=== PATIENT | female | born 2000 | race African-American/Black ===

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

== ENCOUNTER 2019-02-28 22:26 | Outpatient (CLI) | payer MEDICAID ==
[2019-02-28 23:03] LABS: APPEARANCE,URINE SLIGHTLY-CLOUDY; BILIRUBIN,URINE NEGATIVE (NEGATIVE); COLOR,URINE YELLOW; GLUCOSE, URINE 50 mg/dL (NEGATIVE); KETONES,URINE NEGATIVE (NEGATIVE); LEUKOCYTE ESTERASE,URINE MODERATE (NEGATIVE); NITRITE,URINE NEGATIVE (NEGATIVE); PROTEIN,URINE 30 mg/dL (NEGATIVE); URINE SPECIFIC GRAVITY 1.006; UROBILINOGEN,URINE NEGATIVE mg/dL (<2.0)
[2019-02-28 23:15] LABS: URINE AMPHETAMINES SCREEN NEGATIVE; URINE BARBITURATES SCREEN NEGATIVE; URINE BENZODIAZEPINES SCREEN NEGATIVE; URINE COCAINE SCREEN NEGATIVE; URINE MARIJUANA (THC) SCREEN NEGATIVE; URINE METHADONE SCREEN NEGATIVE; URINE PHENCYCLIDINE SCREEN NEGATIVE
== END 2019-02-28 23:59 | disposition home or self-care (01) ==
LOC: LC 22:26
PROVIDERS: ATTEND Obstetrics & Gynecology Gynecology
DX: Z34.02 Encounter for supervision of normal first pregnancy, second trimester (principal)
CPT/HCPCS: 80307; 81001; 87086

== ENCOUNTER 2019-03-05 05:31 | Observation (INO) | payer MEDICAID ==
[2019-03-05 06:06] LABS: APPEARANCE,URINE CLOUDY; BILIRUBIN,URINE NEGATIVE (NEGATIVE); COLOR,URINE YELLOW; GLUCOSE, URINE NEGATIVE (NEGATIVE); KETONES,URINE TRACE mg/dL (NEGATIVE); LEUKOCYTE ESTERASE,URINE LARGE (NEGATIVE); NITRITE,URINE NEGATIVE (NEGATIVE); PROTEIN,URINE 100 mg/dL (NEGATIVE); URINE SPECIFIC GRAVITY 1.005; UROBILINOGEN,URINE NEGATIVE mg/dL (<2.0)
[2019-03-05] MEDS ORDERED: NALBUPHINE HCL INJ 10 MG/1 ML AMPULE ONE (06:22)
[2019-03-05] MEDS ORDERED: RINGERS SOLUTION,LACTATED 1,000 ML IV ONE (06:22)
[2019-03-05] MEDS ORDERED: CEFTRIAXONE INJ 1000 MG VIAL ONE (06:22)
[2019-03-05 06:24] LABS: URINE AMPHETAMINES SCREEN NEGATIVE; URINE BARBITURATES SCREEN NEGATIVE; URINE BENZODIAZEPINES SCREEN NEGATIVE; URINE COCAINE SCREEN NEGATIVE; URINE MARIJUANA (THC) SCREEN NEGATIVE; URINE METHADONE SCREEN NEGATIVE; URINE PHENCYCLIDINE SCREEN NEGATIVE
[2019-03-05] MEDS ORDERED: NALBUPHINE HCL INJ 10 MG/1 ML AMPULE INJ ONE (06:26)
[2019-03-05] MEDS ORDERED: CEFTRIAXONE 1 GM/D5W RTU 1 GM/50 ML RTUPB IV SCH (07:00)
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
[2019-03-05 07:16] LABS: ABSOLUTE LYMPHOCYTES (AUTO) 1.2 10^3/uL (0.5-4.7); ABSOLUTE MONOCYTES (AUTO) 1.5 10^3/uL (0.1-1.4); ABSOLUTE NEUT (AUTO) 12.2 10^3/uL (1.7-8.2); BASOPHILS % (AUTO) 0.2 % (0-2); EOSINOPHILS % (AUTO) 0.2 % (0-6); HEMATOCRIT 34.7 % (36.0-47.0); HEMOGLOBIN 11.6 g/dL (12.0-15.5); LYMPHOCYTES % (AUTO) 7.7 % (13-45); MEAN CORPUSCULAR HGB CONC 33.5 g/dL (32.0-36.0); MEAN CORPUSCULAR VOLUME 81 fl (80-97); MONOCYTES % (AUTO) 10.1 % (3-13); PLATELET COUNT 311 10^3/uL (150-450); RED BLOOD COUNT 4.31 10^6/uL (3.72-5.28); RED CELL DISTRIBUTION WIDTH 13.3 % (11.5-14.0); SEGMENTED NEUTROPHILS % (AUTO) 81.8 % (42-78); TOTAL CELLS COUNTED % (AUTO) 100 %; WHITE BLOOD COUNT 14.9 10^3/uL (4.0-10.5)
[2019-03-05 07:27] LABS: ALANINE AMINOTRANSFERASE 30 U/L (5-35); ALBUMIN 3.8 g/dL (3.7-5.6); ALKALINE PHOSPHATASE 89 U/L (50-135); ANION GAP 11 (5-19); ASPARTATE AMINO TRANSFERASE 23 U/L (5-30); BILIRUBIN,DIRECT 0.2 mg/dL (0.0-0.4); BILIRUBIN,TOTAL 0.8 mg/dL (0.2-1.3); BLOOD UREA NITROGEN 5 mg/dL (7-20); CALCIUM 9.6 mg/dL (8.4-10.2); CARBON DIOXIDE 27 mmol/L (22-30); CHLORIDE 100 mmol/L (98-107); GLUCOSE 80 mg/dL (75-110); POTASSIUM 3.3 mmol/L (3.6-5.0); SODIUM 137.9 mmol/L (137-145); TOTAL PROTEIN 7.1 g/dL (6.3-8.2)
[2019-03-05 09:29] LABS: CHLAM PCR NOT DETECTED (NOT DETECT); GON PCR NOT DETECTED (NOT DETECT)
[2019-03-05] MEDS: CEFTRIAXONE SODIUM 1,000 MG in DEXTROSE 5%-WATER 50 ML IV SCH ×2 (10:26→22:21)
[2019-03-05] MEDS: RINGERS SOLUTION,LACTATED 1,000 ML IV PRN ×2 (12:41→20:58)
[2019-03-06] MEDS: RINGERS SOLUTION,LACTATED 1,000 ML IV PRN (05:08)
[2019-03-06 09:27] VITALS: BP 122/74
--- NOTE | 2019-03-06 10:26 | PDOC DISCHARGE SUMMARY ---
Addendum entered and electronically signed by KEYSHAWN CROW CNM 03/06/19 10:48: Plan Discharge Plan: written rx for macrobid 100mg bid po given Time Spent: Less than 30 Minutes Original Note: General - Admit/Disc Date/PCP Admission Date/Primary Care Provider: 03/05/19 06:25 SONIA BUSBY MD Discharge Date: 03/06/19 - Discharge Diagnosis (1) Nephrolithiasis Is this a current diagnosis for this admission?: Yes - Additional Information Home Medications: Vit,Calc76/Iron/Folic [Pnv 29-1 Tablet] 1 tab PO DAILY 03/05/19 History of Present Illness History of Present Illness: FRANSISCO BOWMAN is a 18 year old female in for observation for kidney stones Hospital Course Hospital Course: has not required any pain medication since observation started Physical Exam - Physical Exam Vital Signs: Temp Pulse Resp BP Pulse Ox 97.9 F 93 H 16 122/74 99 03/06/19 08:00 03/06/19 08:00 03/06/19 03:56 03/06/19 08:00 03/06/19 08:00 Intake & Output 03/05/19 03/06/19 03/07/19 06:59 06:59 06:59 Intake Total 3460 Output Total 2800 Balance 660 Weight 82.5 kg General appearance: PRESENT: no acute distress, cooperative Additional comments: no CVAT bilaterally Result Laboratory Results: 03/05/19 06:49 03/05/19 06:49 Plan Discharge Plan: discharge to home, follow up in 3-4 days Time Spent: Less than 30 Minutes Acute Heart Failure - Is this a Heart Failure Patient?: No
== END 2019-03-06 11:05 | disposition home or self-care (01) ==
LOC: LC 05:31 → LR 06:25 → 2S 08:47
PROVIDERS: ADMIT Student in an Organized Health Care Education/Training Program; ATTEND Student in an Organized Health Care Education/Training Program
PROC: 4A1HXCZ Monitoring of Products of Conception, Cardiac Rate, External Approach (ICD-10-PCS; principal; 2019-03-05)
DX: O26.892 Other specified pregnancy related conditions, second trimester (principal); N20.0 Calculus of kidney; O99.012 Anemia complicating pregnancy, second trimester; D57.3 Sickle-cell trait; Z3A.25 25 weeks gestation of pregnancy; Z89.202 Acquired absence of left upper limb, unspecified level
CPT/HCPCS: 86900; 86901; 36415; 87086; 86850; 85025; 86592; 80053; 81001; 80307; 87491; 87591; 59899; J2300; J0696 ×2; J7060; J7120 ×2; G0378; G0379

== ENCOUNTER 2019-05-13 15:42 | Outpatient (CLI) | payer MEDICAID ==
[2019-05-13 17:08] LABS: ABSOLUTE EOSINOPHILS # (AUTO) 0.1 10^3/uL (0.0-0.6); ABSOLUTE LYMPHOCYTES (AUTO) 1.5 10^3/uL (0.5-4.7); ABSOLUTE MONOCYTES (AUTO) 0.9 10^3/uL (0.1-1.4); ABSOLUTE NEUT (AUTO) 9.6 10^3/uL (1.7-8.2); BASOPHILS % (AUTO) 0.4 % (0-2); EOSINOPHILS % (AUTO) 1.1 % (0-6); HEMATOCRIT 30.4 % (36.0-47.0); LYMPHOCYTES % (AUTO) 12.3 % (13-45); MEAN CORPUSCULAR HGB CONC 32.9 g/dL (32.0-36.0); MEAN CORPUSCULAR VOLUME 76 fl (80-97); MONOCYTES % (AUTO) 7.6 % (3-13); PLATELET COUNT 329 10^3/uL (150-450); RED BLOOD COUNT 3.99 10^6/uL (3.72-5.28); RED CELL DISTRIBUTION WIDTH 13.6 % (11.5-14.0); SEGMENTED NEUTROPHILS % (AUTO) 78.6 % (42-78); TOTAL CELLS COUNTED % (AUTO) 100 %; WHITE BLOOD COUNT 12.3 10^3/uL (4.0-10.5)
[2019-05-13 17:29] LABS: ALBUMIN 3.2 g/dL (3.7-5.6); ALKALINE PHOSPHATASE 139 U/L (50-135); ANION GAP 10 (5-19); ASPARTATE AMINO TRANSFERASE 27 U/L (5-30); BILIRUBIN,DIRECT 0.1 mg/dL (0.0-0.4); BILIRUBIN,TOTAL 0.5 mg/dL (0.2-1.3); BLOOD UREA NITROGEN 4 mg/dL (7-20); CALCIUM 8.8 mg/dL (8.4-10.2); CARBON DIOXIDE 25 mmol/L (22-30); CHLORIDE 103 mmol/L (98-107); GLUCOSE 84 mg/dL (75-110); URIC ACID 5.4 mg/dL (2.5-6.2)
[2019-05-13 17:31] LABS: POTASSIUM 2.9 mmol/L (3.6-5.0)
[2019-05-13] MEDS ORDERED: POTASSIUM CHLORIDE 10 MEQ CAPSULE.ER PO ONE ×2 (17:59→18:06)
[2019-05-13 18:36] LABS: APPEARANCE,URINE CLEAR; BILIRUBIN,URINE NEGATIVE (NEGATIVE); COLOR,URINE STRAW; GLUCOSE, URINE NEGATIVE (NEGATIVE); KETONES,URINE 20 mg/dL (NEGATIVE); LEUKOCYTE ESTERASE,URINE MODERATE (NEGATIVE); NITRITE,URINE NEGATIVE (NEGATIVE); PROTEIN,URINE NEGATIVE (NEGATIVE); URINE SPECIFIC GRAVITY 1.003; UROBILINOGEN,URINE NEGATIVE mg/dL (<2.0)
[2019-05-13 18:51] LABS: URINE AMPHETAMINES SCREEN NEGATIVE; URINE BARBITURATES SCREEN NEGATIVE; URINE BENZODIAZEPINES SCREEN NEGATIVE; URINE COCAINE SCREEN NEGATIVE; URINE MARIJUANA (THC) SCREEN NEGATIVE; URINE METHADONE SCREEN NEGATIVE; URINE PHENCYCLIDINE SCREEN NEGATIVE
[2019-05-13 18:55] LABS: UR PRO/CREAT RATIO RESULT 0.6 mg/mg (0.0-0.2); URINE CREATININE 31.5 mg/dL (16-327); URINE PROTEIN 20.3 mg/dL (<12)
[2019-05-13] MEDS ORDERED: NIFEDIPINE 30 MG TAB.ER.24 PO ONE ×2 (19:00→19:02)
--- NOTE | 2019-05-13 19:17 | Non Stress Test Report ---
Non Stress Test Datetime Report Generated by CPN: 05/13/2019 19:17 DEMOGRAPHIC EGA NST: 35.2 INDICATION Indication for Study: Ordered by Provider MONITORING Monitor Explained: Monitor Explained; Test Explained; Patient Verbalized Understanding Time on Monitor: 05/13/2019 15:51 Time off Monitor: 05/13/2019 19:05 NST Duration: 194 NST INTERVENTIONS NST Interventions: PO Hydration Physician Notified NST: Dr. Younger BABY A: [id number] BABY A Movement : Present Contraction Frequency : Irritability FHR Baseline : 130 Accelerations : 15X15 Decelerations : None Variability : Moderate 6-25bpm NST Review: Meets Criteria for Reactive NST NST Results: Reactive NST REPORT Report Trigger: Send Report
== END 2019-05-13 19:37 | disposition home or self-care (01) ==
LOC: LC 15:42
PROVIDERS: ATTEND Obstetrics & Gynecology
PROC: 4A1HXCZ Monitoring of Products of Conception, Cardiac Rate, External Approach (ICD-10-PCS; principal; 2019-05-13)
DX: O47.03 False labor before 37 completed weeks of gestation, third trimester (principal); Z3A.35 35 weeks gestation of pregnancy
CPT/HCPCS: 59025; 36415; 83615; 84156; 84550; 82570; 85025; 80053; 81001; 80307; J3490

== ENCOUNTER 2019-05-24 17:58 | Inpatient (IN) | payer MEDICAID ==
[2019-05-24 17:32] LABS: APPEARANCE,URINE SLIGHTLY-CLOUDY; BILIRUBIN,URINE NEGATIVE (NEGATIVE); COLOR,URINE STRAW; GLUCOSE, URINE NEGATIVE (NEGATIVE); KETONES,URINE NEGATIVE (NEGATIVE); LEUKOCYTE ESTERASE,URINE LARGE (NEGATIVE); NITRITE,URINE NEGATIVE (NEGATIVE); PROTEIN,URINE NEGATIVE (NEGATIVE); URINE SPECIFIC GRAVITY 1.001; UROBILINOGEN,URINE NEGATIVE mg/dL (<2.0)
[2019-05-24 17:44] LABS: HEMATOCRIT 31.4 % (36.0-47.0); HEMOGLOBIN 10.3 g/dL (12.0-15.5); MEAN CORPUSCULAR HEMOGLOBIN 24.5 pg (27.0-33.4); MEAN CORPUSCULAR HGB CONC 32.8 g/dL (32.0-36.0); MEAN CORPUSCULAR VOLUME 75 fl (80-97); PLATELET COUNT 315 10^3/uL (150-450); RED BLOOD COUNT 4.21 10^6/uL (3.72-5.28); RED CELL DISTRIBUTION WIDTH 14.1 % (11.5-14.0); WHITE BLOOD COUNT 12.5 10^3/uL (4.0-10.5)
[2019-05-24 17:51] LABS: UR PRO/CREAT RATIO RESULT 0.9 mg/mg (0.0-0.2); URINE PROTEIN 20.5 mg/dL (<12)
[2019-05-24 17:57] LABS: URINE AMPHETAMINES SCREEN NEGATIVE; URINE BARBITURATES SCREEN NEGATIVE; URINE BENZODIAZEPINES SCREEN NEGATIVE; URINE COCAINE SCREEN NEGATIVE; URINE MARIJUANA (THC) SCREEN NEGATIVE; URINE METHADONE SCREEN NEGATIVE; URINE PHENCYCLIDINE SCREEN NEGATIVE
[2019-05-24 18:04] LABS: ALBUMIN 3.3 g/dL (3.7-5.6); ALKALINE PHOSPHATASE 168 U/L (50-135); ANION GAP 8 (5-19); ASPARTATE AMINO TRANSFERASE 25 U/L (5-30); BILIRUBIN,DIRECT 0.2 mg/dL (0.0-0.4); BILIRUBIN,TOTAL 0.7 mg/dL (0.2-1.3); BLOOD UREA NITROGEN 2 mg/dL (7-20); CALCIUM 9.2 mg/dL (8.4-10.2); CARBON DIOXIDE 28 mmol/L (22-30); CHLORIDE 100 mmol/L (98-107); GLUCOSE 72 mg/dL (75-110); POTASSIUM 3.1 mmol/L (3.6-5.0); TOTAL PROTEIN 6.2 g/dL (6.3-8.2); URIC ACID 5.4 mg/dL (2.5-6.2)
[2019-05-24] MEDS ORDERED: DINOPROSTONE 10 MG VAGINAL INSERT.SR ONE (19:51)
[2019-05-24] MEDS ORDERED: HYDRALAZINE HCL INJ/PF 20 MG/1 ML SDV ONE (20:02)
[2019-05-24] MEDS ORDERED: HYDRALAZINE HCL INJ/PF 20 MG/1 ML SDV IV ONE ×2 (20:04)
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
[2019-05-24] MEDS: HYDRALAZINE HCL INJ/PF 20 MG/1 ML SDV IV PRN (21:12)
[2019-05-24] MEDS ORDERED: MAG HYDROX/AL HYDROX/SIMETH SUSP 30 ML UDCUP PO ONE (21:16)
[2019-05-24] MEDS ORDERED: MAG HYDROX/AL HYDROX/SIMETH SUSP 30 ML UDCUP ONE (21:17)
[2019-05-24] MEDS ORDERED: NIFEDIPINE 10 MG CAPSULE PO ONE (21:47)
[2019-05-24] MEDS ORDERED: NIFEDIPINE 10 MG CAPSULE ONE (21:50)
[2019-05-24] MEDS ORDERED: ONDANSETRON HCL INJ/PF 4 MG/2 ML SDV IV ONE (23:34)
[2019-05-24] MEDS ORDERED: ACETAMINOPHEN 325 MG TABLET ONE (23:34)
[2019-05-24] MEDS ORDERED: ONDANSETRON HCL INJ/PF 4 MG/2 ML SDV ONE (23:34)
[2019-05-24] MEDS ORDERED: ACETAMINOPHEN 325 MG TABLET PO ONE (23:35)
[2019-05-25] MEDS ORDERED: MISOPROSTOL 0.2 MG TABLET ONE (06:00)
[2019-05-25] MEDS ORDERED: OXYTOCIN 10 UNIT/ML VIAL ONE (06:00)
[2019-05-25] MEDS ORDERED: LIDOCAINE 1% INJ-PF (10 MG/ML) 30 ML SDV ONE (06:00)
[2019-05-25] MEDS ORDERED: OXYTOCIN/NORMAL SALINE 20 UNIT/1,000 ML RTUINJ ONE (06:01)
[2019-05-25] MEDS ORDERED: RINGERS SOLUTION,LACTATED 1,000 ML IV PRN (06:55)
[2019-05-25] MEDS ORDERED: NIFEDIPINE 30 MG TAB.ER.24 PO ONE (07:44)
[2019-05-25] MEDS: NIFEDIPINE 30 MG TAB.ER.24 PO SCH (07:46)
[2019-05-25] MEDS ORDERED: DINOPROSTONE 10 MG VAGINAL INSERT.SR ONE (18:47)
[2019-05-25] MEDS ORDERED: ACETAMINOPHEN 325 MG TABLET PO ONE (19:40)
[2019-05-25] MEDS ORDERED: ACETAMINOPHEN 325 MG TABLET ONE (19:44)
[2019-05-25] MEDS ORDERED: ZOLPIDEM TARTRATE 5 MG TABLET PO ONE (23:54)
[2019-05-25] MEDS ORDERED: ZOLPIDEM TARTRATE 5 MG TABLET ONE (23:56)
[2019-05-26] MEDS ORDERED: LIDOCAINE 2% JELLY 5 ML TUBE ONE (08:52)
[2019-05-26 09:12] LABS: HEMATOCRIT 33.3 % (36.0-47.0); MEAN CORPUSCULAR HEMOGLOBIN 24.6 pg (27.0-33.4); MEAN CORPUSCULAR VOLUME 75 fl (80-97); PLATELET COUNT 333 10^3/uL (150-450); RED BLOOD COUNT 4.46 10^6/uL (3.72-5.28); RED CELL DISTRIBUTION WIDTH 14.1 % (11.5-14.0); WHITE BLOOD COUNT 14.4 10^3/uL (4.0-10.5)
[2019-05-26 09:32] LABS: ALBUMIN 3.4 g/dL (3.7-5.6); ALKALINE PHOSPHATASE 179 U/L (50-135); ANION GAP 11 (5-19); ASPARTATE AMINO TRANSFERASE 23 U/L (5-30); BILIRUBIN,DIRECT 0.3 mg/dL (0.0-0.4); BLOOD UREA NITROGEN 3 mg/dL (7-20); CALCIUM 9.1 mg/dL (8.4-10.2); CARBON DIOXIDE 25 mmol/L (22-30); CHLORIDE 100 mmol/L (98-107); GLUCOSE 76 mg/dL (75-110); TOTAL PROTEIN 6.6 g/dL (6.3-8.2); URIC ACID 5.8 mg/dL (2.5-6.2)
[2019-05-26 09:41] LABS: POTASSIUM 2.8 mmol/L (3.6-5.0)
[2019-05-26] MEDS ORDERED: OXYTOCIN/NORMAL SALINE 20 UNIT/1,000 ML RTUINJ ONE (10:43)
[2019-05-26] MEDS ORDERED: OXYTOCIN/NORMAL SALINE 20 UNIT/1,000 ML RTUINJ IV PRN (10:47)
[2019-05-26] MEDS ORDERED: NIFEDIPINE 30 MG TAB.ER.24 PO ONE (12:20)
[2019-05-26] MEDS ORDERED: POTASSIUM CHLORIDE 10 MEQ CAPSULE.ER PO ONE (16:27)
[2019-05-26] MEDS ORDERED: POTASSIUM CHLORIDE 20 MEQ PACKET PO ONE (16:30)
[2019-05-26] MEDS ORDERED: POTASSIUM CHLORIDE 20 MEQ PACKET PO SCH ×2 (16:30→20:00)
[2019-05-26] MEDS ORDERED: EPHEDRINE SULFATE INJ 50 MG/1 ML AMPULE ONE (18:24)
[2019-05-26] MEDS ORDERED: FENTANYL CITRATE INJ/PF 100 MCG/2 ML AMPUL ONE (18:24)
[2019-05-26] MEDS ORDERED: PHENYLEPHRINE HCL INJ/PF 10 MG/1 ML SDV ONE (18:24)
[2019-05-26] MEDS ORDERED: FENTANYL/BUPIVACAINE/NS/PF 300 MCG/150 ML RTUINJ EPI ONE (18:25)
[2019-05-26] MEDS ORDERED: BUPIVACAINE HCL 0.25 % INJ/PF (2.5 MG/1 ML) 30 ML VIAL ONE (18:25)
[2019-05-26] MEDS ORDERED: AMPICILLIN SOD INJ 2 GM VIAL ONE (23:30)
[2019-05-26] MEDS ORDERED: NALBUPHINE HCL INJ 10 MG/1 ML AMPULE ONE (23:39)
[2019-05-27] MEDS ORDERED: AMPICILLIN SOD INJ 2 GM VIAL IV ONE (00:30)
[2019-05-27] MEDS ORDERED: NALBUPHINE HCL INJ 10 MG/1 ML AMPULE IV ONE (00:30)
[2019-05-27] MEDS ORDERED: POTASSIUM CHLORIDE 20 MEQ PACKET PO ONE (02:00)
[2019-05-27] MEDS ORDERED: HYDRALAZINE HCL INJ/PF 20 MG/1 ML SDV ONE (02:53)
[2019-05-27] MEDS: HYDRALAZINE HCL INJ/PF 20 MG/1 ML SDV IV PRN ×2 (02:58→03:09)
[2019-05-27] MEDS ORDERED: MISOPROSTOL 0.2 MG TABLET PR ONE (04:11)
[2019-05-27] MEDS ORDERED: BENZOCAINE/MENTHOL AEROSOL SPRAY 56 ML TOP PRN (04:15)
[2019-05-27] MEDS ORDERED: ACETAMINOPHEN WITH CODEINE #3 TABLET PO PRN ×2 (04:15)
[2019-05-27] MEDS ORDERED: OXYTOCIN/NORMAL SALINE 20 UNIT/1,000 ML RTUINJ IV PRN (04:15)
[2019-05-27] MEDS ORDERED: DIPH/PERTUSS(ACELL)/TETANUS VAC/PF 0.5 ML SYR (>=10YO) IM PRN ×2 (04:15→13:00)
[2019-05-27] MEDS ORDERED: ZOLPIDEM TARTRATE 5 MG TABLET PO PRN (04:15)
[2019-05-27] MEDS ORDERED: DIBUCAINE 1% OINTMENT 56 GM TP PRN (04:15)
[2019-05-27] MEDS ORDERED: PENICILLIN G-K 5 MILLION UNIT VIAL IV ONE ×2 (04:30→08:30)
--- NOTE | 2019-05-27 05:52 | Delivery Summary ---
Del Sum A-C Datetime Report Generated by CPN: 05/27/2019 05:52 DELIVERY PERSONNEL DELIVERY PERSONNEL: [id number] Delivery Doctor:: Janice Alcantara MD Labor and Delivery Nurse:: Giovanna Ugalde RNmusic video director Nurse:: Mona Beckman RN Nursery Nurse:: Katia Perkins RN Nursery Nurse:: Adrienne Hickman RN MATERNAL INFORMATION Delivery Anesthesia: Local; Epidural Medications After Delivery: Pitocin Drip 20 Units/1000ml NSS Estimated Blood Loss (ml): 100 Maternal Complications: Maternal Fever Provider Comments: of a viable female w/an OA w/nuchal cord x 1 presentation; APGARS pending; 1st deg left vag and 1st deg right periyrethral lacs LABOR SUMMARY EDC: 06/15/2019 00:00 No. Babies in Womb: 1 Attempted: No Labor Anesthesia: Epidural LABOR INFORMATION Reason for Induction: Pre-Eclampsia Onset of Labor: 05/26/2019 16:15 Complete Dilatation: 05/27/2019 03:24 Cervical Ripening Agents: Cervidil Oxytocin: Augmentation Group B Beta Strep: negative Antibiotics # of Doses: 0 Antibiotics Time of Last Dose: N/A Name of Antibiotic Given: N/A MEMBRANES Membranes Rupture Method: Artificial Rupture of Membranes: 05/26/2019 16:15 Length of Rupture (hr): 11.52 Amniotic Fluid Color: Clear Amniotic Fluid Amount: Moderate Amniotic Fluid Odor: Normal STAGES OF LABOR Stage 1 hr: 11 Stage 1 min: 9 Stage 2 hr: 0 Stage 2 min: 22 Stage 3 hr: 0 Stage 3 min: 5 Total Time in Labor hr: 11 Total Time in Labor min: 36 VAGINAL DELIVERY Episiotomy: None Laceration #1: Vaginal Laceration Extension #1: First Degree Laceration #2: Periurethral Laceration Extension #2: First Degree Laceration Repair: Yes Laceration Repair Note: 1st deg right periurethral and 1st deg left vag lac repaired w/3-0 chromic Sponge Count Correct: Yes Sharps Count Correct: Yes CSECTION DELIVERY Primary Indication: N/A CSection Incidence: N/A Labor: N/A Elective: N/A Uterine Closure: Double-layer closure BABY A INFORMATION Delivery Date/Time: 05/27/2019 03:46 Method of Delivery: Vaginal Born in Route : No : N/A Forceps: N/A Vacuum Extraction: N/A Shoulder Dystocia : No PRESENTATION/POSITION BABY A Presentation: Cephalic Cephalic Presentation: Vertex Vertex Position: OA Breech Presentation: N/A PLACENTA INFORMATION BABY A Placenta Delivery Time : 05/27/2019 03:51 Placenta Method of Delivery: Spontaneous Placenta Status: Delivered SCORES BABY A Heart Rate 1 min: >100 bpm Resp Effort 1 min: [place] Reflex Irritability 1 min: No Response Muscle Tone 1 min: Flaccid Color 1 min: Blue/Pale Resuscitation Effort 1 min: Tactile Stimulation SCORE 1 MIN: 4 Heart Rate 5 min: >100 bpm Resp Effort 5 min: [place] Reflex Irritability 5 min: [place] Muscle Tone 5 min: Some Flexion of Extremities Color 5 min: Body [place], Extremities Blue Resuscitation Effort 5 min: Tactile Stimulation SCORE 5 MIN: 7 INFORMATION BABY A Gestational Age at Delivery: 37.2 Gestational Status: Early Term- 37- 38.6 Weeks Outcome : Liveborn Condition : Stable Sex: Female IDENTIFICATION BABY A Infant Verification Date/Time: 05/27/2019 04:29 ID Band Number: [id number] Mother's Name Verified: Yes Infant RN Verifying Infant: Lydia Beckman RN Additional Verifying Personnel: S Aftab RN WEIGHT/LENGTH BABY A Infant Birthweight (gm): 2875 Infant Weight (lb): 6 Infant Weight (oz): 5 Length (in): 19.50 Length (cm): 49.53 CORD INFORMATION BABY A No. Cord Vessels: 3 Nuchal Cord : Around Neck x1, Loose Cord Blood Taken: Yes-For Storage (Mom's Blood type +) Suction: Mouth ASSESSMENT BABY A Skin to Skin: No BABY B INFORMATION : N/A SIGNATURES Signature: with User ID: [email or web address]
[2019-05-27] MEDS: IBUPROFEN 800 MG TABLET PO SCH ×3 (07:31→21:07)
[2019-05-27] MEDS: NIFEDIPINE 30 MG TAB.ER.24 PO SCH ×3 (09:19→12:22)
[2019-05-27] MEDS: AMPICILLIN SOD INJ 1 GM VIAL IV SCH ×2 (09:20→18:38)
[2019-05-27] MEDS: DOCUSATE SODIUM 100 MG CAPSULE PO SCH ×2 (09:40→17:07)
[2019-05-27] MEDS: PRENATAL VITAMIN W DHA CAPSULE PO SCH (09:40)
[2019-05-27] MEDS: FERROUS SULFATE 325 MG TABLET PO SCH ×2 (09:40→17:07)
[2019-05-27] MEDS: SENNOSIDES/DOCUSATE 8.6-50 MG 1 EACH TABLET PO SCH (15:10)
[2019-05-28] MEDS: IBUPROFEN 800 MG TABLET PO SCH ×3 (05:22→23:01)
[2019-05-28 07:02] LABS: HEMATOCRIT 28.6 % (36.0-47.0); HEMOGLOBIN 9.3 g/dL (12.0-15.5); MEAN CORPUSCULAR HEMOGLOBIN 24.3 pg (27.0-33.4); MEAN CORPUSCULAR HGB CONC 32.5 g/dL (32.0-36.0); MEAN CORPUSCULAR VOLUME 75 fl (80-97); PLATELET COUNT 286 10^3/uL (150-450); RED BLOOD COUNT 3.81 10^6/uL (3.72-5.28); WHITE BLOOD COUNT 15.8 10^3/uL (4.0-10.5)
[2019-05-28 07:21] LABS: ALBUMIN 2.6 g/dL (3.7-5.6); ALKALINE PHOSPHATASE 124 U/L (50-135); ANION GAP 7 (5-19); ASPARTATE AMINO TRANSFERASE 30 U/L (5-30); BILIRUBIN,DIRECT 0.1 mg/dL (0.0-0.4); BILIRUBIN,TOTAL 0.4 mg/dL (0.2-1.3); BLOOD UREA NITROGEN 3 mg/dL (7-20); CALCIUM 8.6 mg/dL (8.4-10.2); CARBON DIOXIDE 26 mmol/L (22-30); CHLORIDE 106 mmol/L (98-107); POTASSIUM 3.1 mmol/L (3.6-5.0); TOTAL PROTEIN 5.2 g/dL (6.3-8.2)
[2019-05-28 07:30] LABS: GLUCOSE 64 mg/dL (75-110)
[2019-05-28] MEDS: SENNOSIDES/DOCUSATE 8.6-50 MG 1 EACH TABLET PO SCH (09:25)
[2019-05-28] MEDS: PRENATAL VITAMIN W DHA CAPSULE PO SCH (09:25)
[2019-05-28] MEDS: FERROUS SULFATE 325 MG TABLET PO SCH ×2 (09:25→18:34)
[2019-05-28] MEDS: DOCUSATE SODIUM 100 MG CAPSULE PO SCH ×2 (09:25→18:34)
[2019-05-28] MEDS: NIFEDIPINE 30 MG TAB.ER.24 PO SCH (09:26)
--- NOTE | 2019-05-28 10:08 | PDOC PROGRESS REPORT ---
Subjective-OB Progress Note for:: 05/28/19 - PP Day #1, s/p IOL for Pre-eclampsia. Doing well this morning, denies headache, B+, Rubella Immune, breast and bottlefeeding Physical Exam (OB) Vital Signs: Temp Pulse Resp BP Pulse Ox 97.6 F 96 H 20 154/97 H 100 05/28/19 03:35 05/28/19 08:00 05/28/19 08:00 05/28/19 08:00 05/28/19 08:00 Intake & Output 05/27/19 05/28/19 05/29/19 06:59 06:59 06:59 Intake Total 300 Balance 300 - General General Appearance: Appears well, Alert In distress: None - PIH/Pre-Eclampsia DTR's: 1 + Clonus: Negative Headache: Absent Epigastric Pain: No Visual Changes: No - Lochia Lochia Amount: Scant < 10 ml Lochia Color: Rubra/Red - Abdomen Description: Tender, Soft, Round Hernia Present: No Fundal Description: Firm, Midline Fundal Height: u/u - u/2 - Respiratory Respiratory Status: No respiratory distress - Abdominal Inspection: Gravid female Distension: No distension - Genitourinary Genitourinary Note: voiding - Extremities Upper extremity: Normal inspection Lower extremities: Edema - 1+ - Neurological Cognition: Normal Orientation: AAOx4 - Psychological Associated symptoms: Normal affect, Normal mood - Skin Skin Temperature: Warm Skin Moisture: Dry Objective-Diagnostic Laboratory: 05/28/19 06:36 05/28/19 06:36 05/28/19 05/28/19 06:36 06:36 WBC 15.8 H RBC 3.81 Hgb 9.3 L Hct 28.6 L MCV 75 L MCH 24.3 L MCHC 32.5 RDW 14.0 Plt Count 286 Sodium 139.2 Potassium 3.1 L Chloride 106 Carbon Dioxide 26 Anion Gap 7 BUN 3 L Creatinine 0.60 Est GFR ( Amer) > 60 Glucose 64 L Calcium 8.6 Total Bilirubin 0.4 AST 30 Alkaline Phosphatase 124 Total Protein 5.2 L Albumin 2.6 L Assessment and Plan(PN) - Assessment and Plan (1) (normal spontaneous vaginal delivery) Is this a current diagnosis for this admission?: Yes (2) Amputat arm, unilat Qualifiers: Encounter type: sequela Qualified Code(s): S48.919S - Complete traumatic amputation of unspecified shoulder and upper arm, level unspecified, sequela Is this a current diagnosis for this admission?: No (3) Hypokalemia Is this a current diagnosis for this admission?: Yes (4) Preeclampsia Qualifiers: Trimester: third trimester Qualified Code(s): O14.93 - Unspecified pre- eclampsia, third trimester Is this a current diagnosis for this admission?: Yes (5) Nephrolithiasis Is this a current diagnosis for this admission?: Yes - Time Spent with Patient Time with patient: Less than 15 minutes Medications reviewed and adjusted accordingly: Yes - Disposition Anticipated Discharge: Home Within: within 24 hours
[2019-05-29] MEDS: IBUPROFEN 800 MG TABLET PO SCH ×2 (06:08→13:14)
--- NOTE | 2019-05-29 08:49 | PDOC DISCHARGE SUMMARY ---
Final Diagnosis Discharge Date: 05/29/19 - Final Diagnosis (2) Hypokalemia Is this a current diagnosis for this admission?: Yes (3) (normal spontaneous vaginal delivery) Is this a current diagnosis for this admission?: Yes (4) Nephrolithiasis Is this a current diagnosis for this admission?: Yes Discharge Data - Discharge Medication Prescriptions: Ibuprofen [Motrin 800 mg Tablet] 800 mg PO Q8 #90 tablet Nifedipine [Procardia XL 30 mg Tablet] 60 mg PO DAILY #30 tab.er.24 Home Medications: Vit,Calc76/Iron/Folic [Pnv 29-1 Tablet] 1 tab PO DAILY 03/05/19 Acetaminophen [Tylenol] 1 cap PO PRN PRN 05/24/19 Nifedipine [Procardia XL 30 mg Tablet] 1 tab PO DAILY 05/24/19 Ibuprofen [Motrin 800 mg Tablet] 800 mg PO Q8 #90 tablet 05/29/19 Nifedipine [Procardia XL 30 mg Tablet] 60 mg PO DAILY #30 tab.er.24 05/29/19 Reason(s) for Admission: Induction of Labor Intrapartum Procedure(s): Spontaneous Vaginal Delivery - Diagnosis Test Laboratory: Temp Pulse Resp BP Pulse Ox 97.9 F 101 H 18 152/81 H 99 05/28/19 19:52 05/28/19 19:52 05/28/19 16:00 05/28/19 19:52 05/28/19 19:52 05/24/19 05/24/19 05/26/19 17:16 17:32 09:03 RBC 4.21 4.46 Hgb 10.3 L 11.0 L Hct 31.4 L 33.3 L Urine Opiates Screen NEGATIVE 05/28/19 06:36 RBC 3.81 Hgb 9.3 L Hct 28.6 L Urine Opiates Screen - Discharge information/Instructions Discharge Activity: Activity As Tolerated, Balance Activity w/Rest, Pelvic Rest, No tub bath, Walk Frequently Discharge Diet: Regular Disposition: HOME, SELF-CARE Follow up with: [facility] in: 1
[2019-05-29] MEDS: NIFEDIPINE 30 MG TAB.ER.24 PO SCH (10:36)
[2019-05-29] MEDS: SENNOSIDES/DOCUSATE 8.6-50 MG 1 EACH TABLET PO SCH (10:37)
[2019-05-29] MEDS: FERROUS SULFATE 325 MG TABLET PO SCH (10:37)
[2019-05-29] MEDS: PRENATAL VITAMIN W DHA CAPSULE PO SCH (10:37)
[2019-05-29] MEDS: DOCUSATE SODIUM 100 MG CAPSULE PO SCH (10:37)
[2019-05-29 11:33] VITALS: BP 157/80
== END 2019-05-29 15:00 | disposition home or self-care (01) | DRG 806 ==
LOC: LC 17:58 → LR 18:15 → 2S 05-27 06:37
PROVIDERS: ADMIT Obstetrics & Gynecology; ATTEND Obstetrics & Gynecology
PROC: 3E0P7VZ Introduction of Hormone into Female Reproductive, Via Natural or Artificial Opening (ICD-10-PCS; 2019-05-25)
PROC: 10E0XZZ Delivery of Products of Conception, External Approach (ICD-10-PCS; principal; 2019-05-27)
PROC: 0HQ9XZZ Repair Perineum Skin, External Approach (ICD-10-PCS; 2019-05-27)
DX: O14.04 Mild to moderate pre-eclampsia, complicating childbirth (principal); O75.2 Pyrexia during labor, not elsewhere classified; Z37.0 Single live birth; O99.284 Endocrine, nutritional and metabolic diseases complicating childbirth; E87.6 Hypokalemia; O26.893 Other specified pregnancy related conditions, third trimester; N20.0 Calculus of kidney; O69.81X0 Labor and delivery complicated by cord around neck, without compression, not applicable or unspecified; O70.0 First degree perineal laceration during delivery; Z91.018 Allergy to other foods; Z87.891 Personal history of nicotine dependence; Z3A.37 37 weeks gestation of pregnancy
CPT/HCPCS: 36415; 80053; 80307; 81005; 82570; 83615; 84132; 84156; 84550; 85027; 86850; 86900; 86901; 88307; C1726; J0290; J0360; J2300; J2370; J2405; J2590; J3010; J3490